=== PATIENT | female | born 1965 | race Caucasian/White ===

== ENCOUNTER 2017-08-05 13:51 | Emergency (ER) | payer MEDICAID, OTHER ==
[~2017-08-05] VITALS: Ht 154.9 cm; Wt 67.1 kg
[~2017-08-05 13:51] MED LIST: DICY10CA60 PO; GABA300C16 PO; IBUP400T22 PO; ONDA4TAB35 PO
[2017-08-05 13:56] VITALS: Ht 154.9 cm; Wt 67.1 kg
[2017-08-05 14:53] LABS: BASOPHILS % 0.4 % (0.0-2.0); EOSINOPHILS # 0.1 10^3/ul (0.0-0.5); EOSINOPHILS % 2.5 % (0.0-7.0); HEMATOCRIT 43.4 % (37.0-47.0); HEMOGLOBIN 14.3 g/dl (12.0-16.0); LYMPHOCYTES # 1.3 10^3/ul (0.8-2.9); LYMPHOCYTES % 22.5 % (15.0-51.0); MEAN CORPUSCULAR HEMOGLOBIN 27.8 pg (29.0-33.0); MEAN CORPUSCULAR HGB CONC 32.9 g/dl (32.0-37.0); MEAN CORPUSCULAR VOLUME 84.3 fl (82.0-101.0); MEAN PLATELET VOLUME 9.1 fl (7.4-10.4); MONOCYTE # 0.5 10^3/ul (0.3-0.9); MONOCYTES % 9.3 % (0.0-11.0); NEUTROPHIL # 3.6 10^3/ul (1.6-7.5); PLATELET COUNT 258 10^3/UL (140-415); RED BLOOD COUNT 5.15 10^6/ul (4.20-5.40); RED CELL DISTRIBUTION WIDTH 13.1 % (11.5-14.5); WHITE BLOOD COUNT 5.6 10^3/ul (4.8-10.8)
--- NOTE | 2017-08-05 15:06 | RADRPT ---
PROCEDURE: CT ABDOMEN AND PELVIS WITHOUT CONTRAST. CLINICAL INDICATION: Abdominal pain TECHNIQUE: CT scan of the abdomen and pelvis without contrast was performed on a multidetector hig h-resolution CT scanner. The patient was scanned without intravenous contrast. Coronal and sagittal reformatted images were obtained from the axial source images. Images were reviewed on a high-resol [employer] PACS workstation. The total exam CTDI equals 9.5 mGy and the total exam DLP equals 508 mGy-cm. One or more of the following dose reduction techniques were used: Automated exposure control. Adjustment of the mA and/or kV according to patient size. Use of iterative reconstruction technique. DICOM images are available COMPARISON: None FINDINGS: CT abdomen: Bilateral lower lobe atelectasis is noted. Heart size is within normal limits. No significant perica rdial effusion. Hepatic morphology is within normal limits. There is fatty changes of the liver. No gross contour de forming masses. The gallbladder is within normal limits. No evidence of intrahepatic or extrahepatic biliary dilatation. The spleen and pancreas are within normal limits. Both adrenal glands are within normal limits. Both kidneys are in normal anatomic position. No evidence of obstruction or hydronephrosis. No gross renal/ureteric calculi. The visualized GI tract demonstrates normal caliber loops of small and large bowel. Stool filled loo ps of large bowel suggestive of constipation is identified. The appendix is within normal limits. The unenhanced aorta is unremarkable. There is no significant retroperitoneal lymphadenopathy. CT pelvis: The bladder is within limits. The uterus is within limits. The rectosigmoid colon demonstrate divert iculosis. No significant free fluid. No significant pelvic lymphadenopathy. The visualized osseous structures demonstrates sclerosis of the SI joints and mild degenerative domínguez ges. IMPRESSION: 1. No evidence of acute intra-abdominal/pelvic inflammatory process. No evidence of obstruction. The appendix is within limits. Stool filled loops of large bowel suggestive of constipation. Mild sigmo id diverticulosis. 2. Fatty liver. 3. No evidence of free fluid or free air. No gross focal fluid collections. Otherwise, unremarkable unenhanced CT scan of the abdomen/pelvis. RPTAT: AAPP Heidi Zarate, Physician Date Time Electronically viewed and signed by Heidi Zarate Physician on 08/05/2017 15:06 DENY/
[2017-08-05 15:15] LABS: ALBUMIN 3.7 g/dl (3.3-4.9); BILIRUBIN,INDIRECT 0.3 mg/dl (0-1.1); BILIRUBIN,TOTAL 0.3 mg/dl (0.2-1.3); CALCIUM 9.1 mg/dl (8.4-10.2); CREATININE 0.72 mg/dl (0.44-1.00); POTASSIUM 4.1 mmol/L (3.5-5.1); TOTAL PROTEIN 7.4 g/dl (6.1-8.1)
--- NOTE | 2017-08-05 15:36 | RADRPT ---
PROCEDURE: XR Chest. CLINICAL INDICATION: chest pain TECHNIQUE: Single frontal view of the chest was obtained COMPARISON: None FINDINGS: The heart and mediastinum are within normal limits. There is a tiny right lower lobe calcified granuloma. The lungs are otherwise clear. There is no pleural effusion or pneumothorax. RPTAT: AA IMPRESSION: No acute disease. Tiny right lower lobe calcified granuloma. .Barrington Tabares MD, MD Date Time Electronically viewed and signed by .Barrington Tabares MD, on 08/05/2017 15:36 .S/
[2017-08-05 15:41] LABS: ADD UMIC YES; UR ASCORBIC ACID NEGATIVE (NEGATIVE); UR BACTERIA FEW /HPF (NONE SEEN); UR BILIRUBIN (Dip) NEGATIVE (NEGATIVE); UR BLOOD (Dip) 3+ mg/dL (NEGATIVE); UR CLARITY SLIGHTLY CLOUDY (CLEAR); UR COLOR YELLOW (YELLOW); UR GLUCOSE (Dip) NEGATIVE (NEGATIVE); UR KETONES (Dip) NEGATIVE (NEGATIVE); UR LEUKOCYTE ESTERASE (Dip) 3+ Leu/ul (NEGATIVE); UR NITRITE (Dip) NEGATIVE (NEGATIVE); UR NONSQUAMOUS EPITHELIAL CELL 2 /HPF (NONE SEEN); UR RBC 16 /HPF (0-5); UR RENAL EPITHELIAL CELL FEW /HPF (NONE SEEN); UR SPECIFIC GRAVITY (Dip) 1.011 (1.003-1.030); UR TOTAL PROTEIN (Dip) NEGATIVE (NEGATIVE); UR UROBILINOGEN (Dip) 1+ mg/dL (NEGATIVE)
[2017-08-05] MEDS ORDERED: CIPR500T4 PO (15:48)
--- NOTE | 2017-08-05 16:47 | ERD ---
ER Documentation Chief Complaint Chief Complaint decrease appetite x3 weeks n/v only with meals able to tolerate fluids HPI 52-year-old female complaining of decreased appetite 3 weeks. Patient states she occasionally has some vomiting. Denies any abdominal pain. Denies any chest pain or shortness of breath. Denies changes in urination. Denies change in bowel movement. Has never experienced this before. ROS All systems reviewed and are negative except as per history of present illness. Medications Home Meds Active Scripts Ciprofloxacin Hcl* (Ciprofloxacin Hcl*) 500 Mg Tablet, 500 MG PO BID for 7 Days , TAB Prov:ERIN KENNEDY PA-C 08/05/17 Gabapentin* (Gabapentin*) 300 Mg Capsule, 300 MG PO QHS, #30 CAP Prov:STEPHANY ANGUIANO NP 03/25/16 Ondansetron Hcl* (Zofran* ODT) 4 mg -ODT Tab.disper, 4 MG PO Q8 Y for NAUSEA AND /OR VOMITING, #10 TAB Prov:STEPHANY ANGUIANO NP 03/25/16 Ibuprofen* (Motrin*) 400 Mg Tab, 400 MG PO Q6H Y for PAIN AND OR ELEVATED TEMP, #30 TAB Prov:STEPHANY ANGUIANO NP 03/25/16 Dicyclomine Hcl* (Bentyl*) 10 Mg Capsule, 20 MG PO QID, #60 CAP Prov:STEPHANY ANGUIANO NP 03/25/16 Reported Medications [none] Unknown Strength No Conflict Check 03/25/16 Allergies Allergies: Coded Allergies: Penicillins (Verified Allergy, Severe, RASH, 08/05/17) Uncoded Allergies: ALCOHOL (Allergy, Unknown, 10/20/07) PMhx/Soc History of Surgery: Yes () Anesthesia Reaction: No Hx Neurological Disorder: No Hx Respiratory Disorders: No Hx Cardiac Disorders: No Hx Psychiatric Problems: No Hx Miscellaneous Medical Probl: No Hx Alcohol Use: No Hx Substance Use: No Hx Tobacco Use: No Smoking Status: Never smoker Physical Exam Vitals Vital Signs Date Time Temp Pulse Resp B/P Pulse Ox O2 Delivery O2 Flow Rate FiO2 08/05/17 13:56 98.5 116 22 118/83 96 Physical Exam GENERAL: The patient is well-appearing, well-nourished, in no acute distress HEENT: Atraumatic. Conjunctivae are pink. Pupils equal, round, and reactive to light. There is no scleral icterus. Tympanic membranes clear bilaterally. Oropharynx clear. No nystagmus or photophobia. NECK: C-spine is soft and supple. There is no meningismus. There is no cervical lymphadenopathy. CHEST: Clear to auscultation bilaterally. There are no rales, wheezes or rhonchi. HEART: Regular rate and rhythm. No murmurs, clicks, rubs or gallops. No S3 or S4. ABDOMEN:Soft, nontender and nondistended. Good bowel sounds. No rebound or guarding. No gross peritonitis. No gross organomegaly or masses. No Webber sign or McBurney point tenderness. Result Diagram: 08/05/17 1433 08/05/17 1433 Results 24 hrs Laboratory Tests Test 08/05/17 14:33 White Blood Count 5.610^3/ul Red Blood Count 5.1510^6/ul Hemoglobin 14.3g/dl Hematocrit 43.4% Mean Corpuscular Volume 84.3fl Mean Corpuscular Hemoglobin 27.8pg Mean Corpuscular Hemoglobin Concent 32.9g/dl Red Cell Distribution Width 13.1% Platelet Count 16355^3/UL Mean Platelet Volume 9.1fl Neutrophils % 64.0% Lymphocytes % 22.5% Monocytes % 9.3% Eosinophils % 2.5% Basophils % 0.4% Nucleated Red Blood Cells % 0.0/100WBC Neutrophils # 3.610^3/ul Lymphocytes # 1.310^3/ul Monocytes # 0.510^3/ul Eosinophils # 0.110^3/ul Basophils # 0.010^3/ul Nucleated Red Blood Cells # 0.010^3/ul Urine Color YELLOW Urine Clarity SLIGHTLY CLOUDY Urine pH 7.0 Urine Specific [place] 1.011 Urine Ketones NEGATIVEmg/dL Urine Nitrite NEGATIVEmg/dL Urine Bilirubin NEGATIVEmg/dL Urine Urobilinogen 1+mg/dL Urine Leukocyte Esterase 3+Marco A/ul Urine Microscopic RBC 16/HPF Urine Microscopic WBC 58/HPF Urine Renal Epithelial Cells FEW/HPF Urine Bacteria FEW/HPF Urine Hemoglobin 3+mg/dL Urine Glucose NEGATIVEmg/dL Urine Total Protein NEGATIVEmg/dl Sodium Level 139mmol/L Potassium Level 4.1mmol/L Chloride Level 103mmol/L Carbon Dioxide Level 28mmol/L Anion Gap 12 Blood Urea Nitrogen 11mg/dl Creatinine 0.72mg/dl Glucose Level 105mg/dl Calcium Level 9.1mg/dl Total Bilirubin 0.3mg/dl Direct Bilirubin 0.00mg/dl Indirect Bilirubin 0.3mg/dl Aspartate Amino Transf (AST/SGOT) 128IU/L Alanine Aminotransferase (ALT/SGPT) 188IU/L Alkaline Phosphatase 86IU/L Total Protein 7.4g/dl Albumin 3.7g/dl Globulin 3.70g/dl Albumin/Globulin Ratio 1.00 Lipase 323U/L Procedures/MDM DIAGNOSTIC IMAGING REPORT Patient: ANGELO DUTTA : 1965 Age: 52 Sex: F MR #: [id number] DOS: 08/05/17 1422 Ordering MD: THEODORE KENNEDY PA-C Location: [facility] Room/Bed: PROCEDURE: CT ABDOMEN AND PELVIS WITHOUT CONTRAST. CLINICAL INDICATION: Abdominal pain TECHNIQUE: CT scan of the abdomen and pelvis without contrast was performed on a multidetector high-resolution CT scanner. The patient was scanned without intravenous contrast. Coronal and sagittal reformatted images were obtained from the axial source images. Images were reviewed on a high-resolution PACS workstation. The total exam CTDI equals 9.5 mGy and the total exam DLP equals 508 mGy-cm. One or more of the following dose reduction techniques were used: Automated exposure control. Adjustment of the mA and/or kV according to patient size. Use of iterative reconstruction technique. DICOM images are available COMPARISON: None FINDINGS: CT abdomen: Bilateral lower lobe atelectasis is noted. Heart size is within normal limits. No significant pericardial effusion. Hepatic morphology is within normal limits. There is fatty changes of the liver. No gross contour deforming masses. The gallbladder is within normal limits. No evidence of intrahepatic or extrahepatic biliary dilatation. The spleen and pancreas are within normal limits. Both adrenal glands are within normal limits. Both kidneys are in normal anatomic position. No evidence of obstruction or hydronephrosis. No gross renal/ureteric calculi. The visualized GI tract demonstrates normal caliber loops of small and large bowel. Stool filled loops of large bowel suggestive of constipation is identified. The appendix is within normal limits. The unenhanced aorta is unremarkable. There is no significant retroperitoneal lymphadenopathy. CT pelvis: The bladder is within limits. The uterus is within limits. The rectosigmoid colon demonstrate diverticulosis. No significant free fluid. No significant pelvic lymphadenopathy. The visualized osseous structures demonstrates sclerosis of the SI joints and mild degenerative changes. IMPRESSION: 1. No evidence of acute intra-abdominal/pelvic inflammatory process. No evidence of obstruction. The appendix is within limits. Stool filled loops of large bowel suggestive of constipation. Mild sigmoid diverticulosis. 2. Fatty liver. 3. No evidence of free fluid or free air. No gross focal fluid collections. Otherwise, unremarkable unenhanced CT scan of the abdomen/pelvis. DIAGNOSTIC IMAGING REPORT Patient: ANGELO DUTTA : 1965 Age: 52 Sex: F MR #: [id number] DOS: 08/05/17 1422 Ordering MD: THEODORE KENNEDY PA-C Location: [facility] Room/Bed: PROCEDURE: XR Chest. CLINICAL INDICATION: chest pain TECHNIQUE: Single frontal view of the chest was obtained COMPARISON: None FINDINGS: The heart and mediastinum are within normal limits. There is a tiny right lower lobe calcified granuloma. The lungs are otherwise clear. There is no pleural effusion or pneumothorax. RPTAT: AA IMPRESSION: No acute disease. Tiny right lower lobe calcified granuloma. MDM: 52-year-old female complaining of decreased appetite. Patient's blood work is within normal limits and scans are within normal limits. Patient is nontoxic-appearing. Patient is recommended to follow-up with PMD within 1-2 days for further evaluation. Patient is told symptoms change or worsen to return the ER sooner. Patient is discharged stable Departure Diagnosis: Primary Impression: UTI (urinary tract infection) Condition: Stable Patient Instructions: Understanding Urinary Tract Infections (UTIs) Referrals: [facility] YOU HAVE RECEIVED A MEDICAL SCREENING EXAM AND THE RESULTS INDICATE THAT YOU DO NOT HAVE A CONDITION THAT REQUIRES URGENT TREATMENT IN THE EMERGENCY DEPARTMENT. FURTHER EVALUATION AND TREATMENT OF YOUR CONDITION CAN WAIT UNTIL YOU ARE SEEN IN YOUR DOCTORS OFFICE WITHIN THE NEXT 1-2 DAYS. IT IS YOUR RESPONSIBILITY TO MAKE AN APPOINTMENT FOR FOLOW-UP CARE. IF YOU HAVE A PRIMARY DOCTOR --you should call your primary doctor and schedule an appointment IF YOU DO NOT HAVE A PRIMARY DOCTOR YOU CAN CALL OUR PHYSICIAN REFERRAL HOTLINE AT IF YOU CAN NOT AFFORD TO SEE A PHYSICIAN YOU CAN CHOSE FROM THE FOLLOWING [facility] [address] [facility] [address] [facility] [address] [facility] [address] [facility] [phone] [id number] [facility]. [facility]. [address] Additional Instructions: FOLLOW UP WITH YOUR PRIMARY CARE PHYSICIAN TOMORROW.Return to this facility if you are not improving as expected. ERIN KENNEDY PA-C Aug 05, 2017 16:47
== END 2017-08-05 16:10 | disposition home or self-care (01) ==
LOC: FTE 13:51
DX: N39.0 Urinary tract infection, site not specified (principal)
CPT/HCPCS: 36415; 71010; 74176; 80053; 81001; 83690; 85025; Z7502

== ENCOUNTER 2017-08-14 01:33 | Inpatient (IN) | END 2017-08-18 15:15 | disposition home or self-care (01) | DRG 690 ==

== ENCOUNTER 2017-09-22 17:40 | Emergency (ER) | END 2017-09-23 04:52 | disposition home or self-care (01) ==